=== PATIENT | male | born 1955 | race Caucasian/White ===

== ENCOUNTER 2017-03-02 22:14 | Emergency (ER) | payer BC ==
[2017-03-02 22:39] LABS: Mean Cell Volume 88.2 fl (78-100); Mean Corpuscular Hemoglobin 30.1 pg (27-31); Mean Corpuscular Hgb Conc 34.1 g/dl (32-36); Mean Platelet Volume 10.8 fl (6.0-9.5); Neutrophil # 4.9 K/mm3 (1.3-6.0); Neutrophil % 61.6 % (42-75.0); Platelet Count 223 K/mm3 (150-450); Red Blood Count 4.99 M/mm3 (4.7-6.0); Red Cell Distribution Width 12.3 % (11.5-14.0)
[2017-03-02 22:42] LABS: Urine Bilirubin Negative (NEGATIVE); Urine Blood Negative /ul (NEGATIVE); Urine Ketone Negative (NEGATIVE); Urine Nitrite Negative (NEGATIVE); Urine Protein Negative (NEGATIVE); Urine Urobilinogen Normal (NORMAL)
[2017-03-02 22:53] LABS: Albumin * 4.1 gm/dl (3.4-5.0); Anion Gap 14.3 mmol/L (6.8-13.8); BUN/Creatinine Ratio 14.1 (9.0-21.6); Bilirubin, Total 0.6 mg/dL (0.0-1.1); Ca. Corrected For Albumin 9.3 mg/dL (8.4-10.2); Calcium * 9.7 mg/dL (7.9-10.9); Carbon Dioxide 29.8 mmol/L (24-32.6); Potassium 4.1 mmol/L (3.4-4.6); Total Protein 7.5 gm/dL (6.2-8.2); Urine Amorphous Sediment Few - 1+ (NONE-FEW); Urine Appearance Cloudy; Urine Bacteria TRACE; Urine Color Pale Yellow; Urine RBC None Seen /hpf (0-5); Urine WBC None Seen /hpf (0-5)
[2017-03-02] MEDS ORDERED: MAG HYDROX/ALUMINUM HYD/SIMETH 30 ML UDC PO ONE (22:57)
[2017-03-02] MEDS ORDERED: SUCRALFATE 1 G/10 ML UDC PO ONE (22:57)
[2017-03-02] MEDS ORDERED: LIDOCAINE HCL 20 ML UDC PO ONE (22:57)
--- NOTE | 2017-03-02 23:04 | ERNOTE ---
Abdominal HPI - General Chief Complaint: Abdominal Pain Time Seen by Provider: 03/02/17 22:44 Source: patient Exam Limitations: no limitations - Immun/Allergies/Home Medications Immunizatons: IMMUNIZATION HX Immunizations Up to Date Yes Allergies/Adverse Reactions: Allergies bee venom protein (honey bee) Allergy (Verified 03/02/17 22:26) Home Medications: HOME MEDICATIONS Omeprazole 40 mg PO DAILY #7 capsule. 03/03/17 [Last Taken Unknown] Ranitidine HCl [Zantac] 150 mg PO HS #7 tablet 03/03/17 [Last Taken Unknown] Sucralfate [Carafate] 1 gm PO DAILY #30 oral.susp 03/03/17 [Last Taken Unknown] - History of Present Illness Narrative: onset of mod to severe epigastric pain this afternoon. He tried tums without benefit. Timing: getting worse Quality: moderate Activities at Onset: none Modifying Factors - (Improves): Absent: antacids Associated Symptoms: Present: other - diarrhea Prior Treatment: Present: treated by physician - for other abdominal complaints about 4-6 weeks ago and thought he was getting a little better. He says this is completely different Review of Systems - Review of Systems Constitutional: Absent: recent illness, fever, chills EYE: Present: no symptoms reported ENT: Present: no symptoms reported Respiratory: Absent: shortness of breath Cardiology: Absent: chest pain Gastrointestinal/Abdominal: Present: See HPI Genitourinary: Present: no symptoms reported Musculoskeletal: Present: no symptoms reported Skin: Present: no symptoms reported Neurological: Present: no symptoms reported Endocrine: Present: no symptoms reported Hematologic/Lymphatic: Present: no symptoms reported Psych: Absent: emotional problems - Patient's Past Medical History Patient History - Medical: Other Patient History - Cardiac/Respiratory: No pertinent hx Patient History - Cancer: No Hx of Cancer Patient History - Surgical Procedures: No surgical history Patient History - Other: None - Social History Living Situations: spouse Abuse History: No History of abuse Psych History: No pertinent hx Smoking Status: Never smoker Have you smoked in the past 12 months: No Do you dip or chew tobacco: No Alcohol Use: sober Drug Use: none - Immunizations Immunizations Up to Date: Yes Physical Exam - Physical Exam General Appearance: Present: wd/wn, alert, no apparent distress Head Exam: Present: normal inspection, no evidence of injury Eye Exam: Normal inspection: bilateral Neck: Present: normal inspection, nontender, supple Respiratory: Present: no respiratory distress, normal breath sounds, no accessory muscle use Cardiovascular/Chest: Present: regular rate, rhythm, no murmur Gastrointestinal/Abdominal: Present: normal bowel sounds, tenderness - epigastric and LUQ mild. Absent: distended, guarding, rebound Back Exam: Present: normal inspection, normal range of motion, no CVA tenderness Extremity Exam: Present: normal inspection, normal range of motion, no edema Neurological Exam: Present: alert, oriented, normal mood/affect Skin Exam: Present: normal color, warm/dry Lymphatic Exam: Present: no adenopathy ED Progress - Results and Orders Patient's Lab Results:: I have reviewed the patient's lab results. Results and Orders: Laboratory Tests 03/02/17 03/02/17 03/02/17 22:36 22:36 22:36 WBC 8.0 Hgb 15.0 Hct 44.0 Plt Count 223 Sodium 142 Potassium 4.1 Chloride 102 Carbon Dioxide 29.8 BUN 18 Creatinine 1.28 Random Glucose 128 H Calcium 9.7 Total Bilirubin 0.6 AST 27 ALT 43 Alkaline Phosphatase 66 Total Protein 7.5 Albumin 4.1 Amylase 76 Lipase 129 Urine Color Pale yellow Urine Appearance Cloudy Urine pH 8.0 H Ur Specific [place] 1.010 Urine Protein Negative Urine Glucose (UA) Negative Urine Ketones Negative Urine Blood Negative Urine Nitrate Negative Urine Bilirubin Negative Urine Urobilinogen Normal Ur Leukocyte Esterase Negative Urine RBC None seen Urine WBC None seen Ur Epithelial Cells None seen Amorphous Sediment Few - 1+ Urine Bacteria Trace Urine Culture Comments No culture indicated - Vital Signs Vital Signs: Vital Signs 03/02/17 22:19 Temperature 36.8 C Pulse Rate 65 Respiratory 14 Rate Blood Pressure 158/101 O2 Sat by Pulse 98 Oximetry - X-Ray X-Ray #1 X-Ray: abdomen Interpretation: Interp. by me X-ray Comments: minimal stool retention. No a/f levels or evidence of obstruction. - Progress/Reassessment Chief Complaint: Abdominal Pain Progress Note-Subjective: 03/03/17 00:14 Pt feeling much better after GI coctail. Discussed PUD and gastritis. He states that he has an appointment with Dr. Restrepo on of this week for consultation for colonoscopy. I suggested he discuss these symptoms and an EGD with Dr. Restrepo. He expressed agreement and understanding Departure - Departure Clinical Impression: Gastritis Qualifiers: Gastritis type: unspecified gastritis Chronicity: acute Gastritis bleeding: presence of bleeding unspecified Qualified Code(s): K29.00 - Acute gastritis without bleeding Disposition: Home Follow Up Needed Condition: Good Instructions: Gastritis, Adult, [id number], Peptic Ulcer Additional Instructions: See Dr. Restrepo as scheduled Referrals: Pb Doshi DO [Primary Care Provider] - Prescriptions: Omeprazole 40 mg PO DAILY #7 capsule. Ranitidine HCl [Zantac] 150 mg PO HS #7 tablet Sucralfate [Carafate] 1 gm PO DAILY #30 oral.susp
[2017-03-03] MEDS ORDERED: PANTOPRAZOLE SODIUM 40 MG TABLET.EC PO ONE (00:12)
[2017-03-03] MEDS ORDERED: SUCRALFATE 1 G/10 ML UDC PO ONE (00:13)
[2017-03-03] MEDS ORDERED: FAMOTIDINE 20 MG TABLET PO ONE (00:13)
[2017-03-03] MEDS ORDERED: PANTOPRAZOLE SODIUM 40 MG TABLET.EC ONE (00:28)
[2017-03-03] MEDS ORDERED: FAMOTIDINE 20 MG TABLET ONE (00:28)
[2017-03-03 00:37] VITALS: BP 144/79
== END 2017-03-03 00:35 | disposition home or self-care (01) ==
LOC: ER 22:14
DX: K29.00 Acute gastritis without bleeding (principal)

== ENCOUNTER 2017-03-29 07:39 | Day surgery (SDC) | payer BC ==
[~2017-03-29 07:39] MED LIST: RINGER'S SOLUTION,LACTATED 1,000 ML IV PRN
[2017-03-29] MEDS ORDERED: RINGER'S SOLUTION,LACTATED 1,000 ML IV PRN (09:21)
[2017-03-29] MEDS ORDERED: RINGER'S SOLUTION,LACTATED 1,000 ML IV ONE (10:30)
[2017-03-29 10:51] VITALS: BP 150/81
--- NOTE | 2017-03-29 18:08 | OR ---
Operative Report - Dictated Report Narrative: Operative Report Date of operation: 03/29/17 Preoperative diagnosis: Epigastric pain. No prior dedicated: Studies Postoperative diagnosis: Esophagitis, hiatal hernia, gastropathy (pathology and CLOtest pending). Diverticulosis Operation: EGD with biopsies. Colonoscopy Surgeon: Dr Cervantes Anesthesia: HANH GUEVARA CRNA Indications for procedure: The patient is a 61-year-old male referred by Dr. Doshi. The patient was recently seen in the emergency room with epigastric pain which has responded to medications. He has had no previous dedicated colon studies. There is no family history of colon cancer. Findings: Esophagitis, hiatal hernia, gastropathy (mild). Sigmoid diverticulosis otherwise normal colonoscopy Narrative of procedure: The patient was identified preoperatively, and prior to the administration of anesthetic a multidisciplinary timeout was observed EGD: With the patient in the recumbent position, a bite-block was placed, intravenous sedation was administered, and the patient's eyes covered with a towel. The flexible fiberoptic gastroscope was advanced into the posterior pharynx which appeared normal. The supraglottic larynx appeared normal. The cords appeared normal, moved well, and opposed in the midline. The scope was advanced under direct vision into the proximal esophagus which appeared normal. The esophagus appeared freely distensible with normal mucosa. The esophageal mucosa appeared normal down to the gastroesophageal junction which was sharp with mild inflammation. The GE junction appeared normally distensible. There was a small hiatal hernia. The scope was advanced into the stomach proper which was insufflated with air. There was mild pain and gastric erythema however no kylie ulcers or neoplastic lesions were appreciated including retroflexed view of the gastric fundus which did demonstrate the small hiatal hernia. The scope was redirected toward the pylorus.. The pylorus appeared patent. The scope was advanced into the duodenal bulb which appeared normal. The scope was advanced further to the horizontal portion of the duodenum which appeared normal, specifically the villous architecture appeared well preserved and clear bile was present. The scope was slowly withdrawn through the duodenal bulb with confirmation that no active ulcer was present. The scope was withdrawn into the stomach and chemical sales representative biopsies of gastric mucosa obtained for CLOtest and pathology. The biopsy sites were seen to be hemostatic. The insufflated air was removed, the scope withdrawn from the patient, and this portion of the procedure terminated. COLONOSCOPY: The patient was then placed in the left lateral position, and the perineum was inspected. There was no evidence of pilonidal disease or skin breakdown. The external appearance of the anus was normal. Sphincter tone was good. The flexible fiberoptic colonoscope was inserted into the rectum which was insufflated with air. The rectal mucosa and submucosal vascular pattern appeared normal, the prep was seen to be complete. The scope was advanced through the sigmoid colon, which contained numerous non-impacted noninflamed diverticular openings. The scope was advanced up the descending colon, and around the splenic flexure where the triangular haustral architecture of the transverse colon was seen. The scope was advanced across the transverse colon, around the hepatic flexure to the cecum, where the confluence of tenia and the ileocecal valve were identified. The mucosa at this level appeared normal. The scope was then slowly withdrawn in a circular fashion so that all aspects of colonic mucosa were inspected. The proximal colon was somewhat capacious and character however the colon was normal in course . The haustral architecture appeared well preserved throughout with no evidence of external compression. The mucosa and submucosal vascular pattern appeared normal, specifically there was no gross evidence to suggest colitis or inflammatory bowel disease and no AV malformations were seen. Diverticulosis was moderate in degree and confined primarily to the sigmoid colon. No polyps were encountered. The scope was gradually withdrawn to the level of the rectum. As much insufflated air as possible was removed. The scope was withdrawn from the patient and the procedure terminated. The patient tolerated the anesthetic and procedure well without complication and was transferred back to the ambulatory surgery area awake and in stable condition. The patient remained stable throughout a period of postoperative observation. He denied abdominal discomfort, was able to tolerate by mouth intake, and was up without assistance. I shared the operative findings with the patient and he was given copies of the photographs which appear in the medical record. He was discharged home with instructions not to engage in hazardous activity today, but may resume normal activity tomorrow, and advance diet as tolerated. He is to continue those medications as listed in the history and physical exam. I made arrangements to contact him with the biopsy reports and will make additional recommendations for treatment and follow-up based upon those results. Reviewed and electronically signed
== END 2017-03-29 07:40 | disposition home or self-care (01) ==
LOC: AMB 07:39
PROVIDERS: ATTEND Surgery
PROC: 0DB68ZX Excision of Stomach, Via Natural or Artificial Opening Endoscopic, Diagnostic (ICD-10-PCS; principal; 2017-03-29 08:50)
PROC: 0DJD8ZZ Inspection of Lower Intestinal Tract, Via Natural or Artificial Opening Endoscopic (ICD-10-PCS; 2017-03-29 08:50)
DX: Z12.11 Encounter for screening for malignant neoplasm of colon (principal); K20.9 Esophagitis, unspecified; K44.9 Diaphragmatic hernia without obstruction or gangrene; K29.70 Gastritis, unspecified, without bleeding; K57.30 Diverticulosis of large intestine without perforation or abscess without bleeding; Z87.891 Personal history of nicotine dependence; Z68.26 Body mass index [BMI] 26.0-26.9, adult
CPT/HCPCS: 43239; G0121